=== PATIENT | male | born 1965 | race African-American/Black ===

== ENCOUNTER 2017-09-10 06:05 | Emergency (ER) | payer OTHER ==
--- NOTE | 2017-09-10 06:34 | EDM.PDOC ---
ED HPI GENERAL MEDICAL PROBLEM - General Chief Complaint: Lower Extremity Injury/Pain Stated Complaint: PAIN IN RIGHT HAMSTRING Time Seen by Provider: 09/10/17 06:27 - History of Present Illness INITIAL COMMENTS - FREE TEXT/NARRATIVE: HISTORY AND PHYSICAL: History of present illness: Patient's 52-year-old black male presents with concern of right buttock pain with radiation down his thigh posteriorly over the last several days his tried some topical ointments with no improvement he denies trauma denies numbness weakness denies lower back pain other concern Review of systems: As per history of present illness and below otherwise all systems reviewed and negative. Past medical history: As per history of present illness and as reviewed below otherwise noncontributory. Surgical history: As per history of present illness and as reviewed below otherwise noncontributory. Social history: No reported history of drug or alcohol abuse. Family history: As per history of present illness and as reviewed below otherwise noncontributory. Physical exam: HEENT: Atraumatic, normocephalic, pupils reactive, negative for conjunctival pallor or scleral icterus, mucous membranes moist, throat clear, neck supple, nontender, trachea midline. Lungs: Clear to auscultation, breath sounds equal bilaterally, chest nontender. Heart: S1S2, regular, negative for clicks, rubs, or JVD. Abdomen: Soft, nondistended, nontender. Negative for masses or hepatosplenomegaly. Negative for costovertebral tenderness. Pelvis: Stable nontender. Genitourinary: Deferred. Rectal: Deferred. Extremities: Atraumatic, negative for cords or calf pain. Neurovascular unremarkable. Patient has pain over his right sciatic notch. Neuro: Awake, alert, oriented. Cranial nerves II through XII unremarkable. Cerebellum unremarkable. Motor and sensory unremarkable throughout. Exam nonfocal. Diagnostics: None Therapeutics: None Impression: #1 sciatica Definitive disposition and diagnosis as appropriate pending reevaluation and review of above. right buttock Pain Score (Numeric/FACES): 10 - Related Data Allergies Allergy/AdvReac Type Severity Reaction Status Date / Time No Known Allergies Allergy Verified 09/10/17 06:16 Home Meds: Home Meds traMADol [Ultram] 1 cap PO Q8HR PRN 09/10/17 [History] Past Medical History - Past Health History Medical/Surgical History: Denies Medical/Surgical History - Infectious Disease History Infectious Disease History: Reports: Chicken Pox, Measles, Mumps Social & Family History - Family History Family Medical History: Noncontributory Cardiac: Reports: [place] - Tobacco Use Smoking Status *Q: Never Smoker Second Hand Smoke Exposure: Yes - Recreational Drug Use Recreational Drug Use: No Drug Use in Last 12 Months: No Review of Systems - Review of Systems Review Of Systems: ROS reveals no pertinent complaints other than HPI. ED EXAM, GENERAL - Physical Exam Exam: See Below (See dictation) Course - Vital Signs Last Recorded V/S: Last Vital Signs Temp 36.3 C 09/10/17 06:05 Pulse 66 09/10/17 06:05 Resp 18 09/10/17 06:05 BP 155/102 H 09/10/17 06:05 Pulse Ox 95 09/10/17 06:05 Departure - Departure Time of Disposition: 06:33 Disposition: Home, Self-Care 01 Condition: Good Clinical Impression: Sciatica - Discharge Information Referrals: PCP,None [Primary Care Provider] - Additional Instructions: The following information is given to patients seen in the emergency department who are being discharged to home. This information is to outline your options for follow-up care. We provide all patients seen in our emergency department with a follow-up referral. The need for follow-up, as well as the timing and circumstances, are variable depending upon the specifics of your emergency department visit. If you don't have a primary care physician on staff, we will provide you with a referral. We always advise you to contact your personal physician following an emergency department visit to inform them of the circumstance of the visit and for follow-up with them and/or the need for any referrals to a consulting specialist. The emergency department will also refer you to a specialist when appropriate. This referral assures that you have the opportunity for followup care with a specialist. All of these measure are taken in an effort to provide you with optimal care, which includes your followup. Under all circumstances we always encourage you to contact your private physician who remains a resource for coordinating your care. When calling for followup care, please make the office aware that this follow-up is from your recent emergency room visit. If for any reason you are refused follow-up, please contact the [facility] emergency department at and asked to speak to the emergency department charge nurse. [facility] [address] [place] [id number] Call to schedule appointment with primary care clinic above Medrol Dosepak Naprosyn Ultram as prescribed return as needed as discussed
[2017-09-10 06:46] VITALS: BP 142/98
== END 2017-09-10 06:41 | disposition home or self-care (01) ==
LOC: MW.ED 06:05
DX: M54.30 Sciatica, unspecified side (principal)
CPT/HCPCS: 99282

== ENCOUNTER 2017-10-29 11:49 | Day surgery (SDC) | payer OTHER ==
[2017-10-29] MEDS ORDERED: Ropivacaine 0.5% 5 MG/ML 30 ML SDV ONE (12:23)
[2017-10-29] MEDS ORDERED: Betamethasone Acetate/Betamethasone Sod Phosphate 30 MG/5 ML MDV ONE (12:23)
[2017-10-29] MEDS ORDERED: Lidocaine 2% 5 ML SDV ONE (12:23)
[2017-10-29] MEDS ORDERED: Iopamidol 408 MG/ML 50 ML SDV ONE (12:23)
--- NOTE | 2017-10-29 16:32 | OR ---
SURGEON: Shani Ott D.O. DATE OF PROCEDURE: 10/29/2017 PREOPERATIVE DIAGNOSES: 1. Lumbar degenerative disk disease. 2. Lumbar spinal stenosis. 3. Lumbar herniated disk. 4. Lumbar radiculopathy. POSTOPERATIVE DIAGNOSES: 1. Lumbar degenerative disk disease. 2. Lumbar spinal stenosis. 3. Lumbar herniated disk. 4. Lumbar radiculopathy. PROCEDURES PERFORMED: 1. Right transforaminal epidural at S1. 2. Fluoroscopic guidance for needle placement. 3. Local with oral Valium for sedation. SCREENING QUESTIONS: The patient answered "no" to all of the following questions: 1. Are you allergic to iodine, Betadine or latex? 2. Do you have a bleeding disorder? 3. Do you have any joint replacements, heart valve replacements, or a pacemaker? 4. Are you allergic to anti-inflammatories or blood thinners? 5. Do you have any current local or systemic infections? MEDICAL NECESSITY: This is a patient with a history of chronic low back pain and lower extremity radicular pain in the above dermatomal pattern that comes in for the above diagnostic and therapeutic procedure. Pertinent positives and negatives for this suspected disease process along with the diagnostic findings and testing are in the patient's history and physical exam. The most salient feature includes radicular pain in the above dermatomal pattern. The patient had failed attempts at conservative therapy including physical therapy, nonsteroidal anti- inflammatory drugs, and other medications. No contraindications to perform this procedure including medical, no bleeding disorders or infections, no psychological, no antisocial personality disorder or active addiction disorder. There are no work-related issues, and, in general, the patient does not have any history of multiple prior interventions, surgeries or nerve blocks which have failed to return the patient to function. The patient's other symptoms to be treated include numbness, paresthesia, dysesthesia or hypoesthesia referred into the left lower extremity or any weakness in the involved myotome. This procedure is being performed in accordance with national guidelines as written by the International Sp[employer]vention [employer] (ALEJANDRA). DESCRIPTION OF PROCEDURE: The patient had the procedure thoroughly explained including risks, benefits and alternatives. Consent was signed in my clinic indicating understanding and willingness to proceed. The patient presented to [facility] [place] where the patient was escorted to the dressing room to disrobe and change into a hospital gown. Preoperative vital signs were taken and stable. The patient reported that Valium was taken prior to the procedure. The patient was brought to the procedure room and placed in the prone position on the table. A pillow was placed under the abdomen in order to flatten the lumbar lordosis. The back was prepped with ChloraPrep and sterilely draped. All personnel in the operating room were dressed in appropriate attire including surgical scrubs, head and shoe covers. This was to ensure sterility while in the treatment room. During the time fluoroscopy was in use, all personnel in the operating room wore lead osorio with thyroid collars. Sterile technique was used during the procedure. The fluoroscope was placed for the S1 transforaminal epidural steroid injection. There was no sign of infection at the skin site for needle insertion. The skin was anesthetized with 2% lidocaine with a 27 gauge 1-1/2 inch needle. Then a 22 gauge 3-1/2 inch spinal needle, advanced to the right S1. Under direct fluoroscopic guidance needle position was verified in three views; AP, oblique and lateral, with 0.2 cubic centimeters increments of Isovue-200 dye. No intravascular flow pattern was observed under live fluoroscopy. Then 12 milligrams of Celestone was slowly injected after negative aspiration of heme, cerebrospinal fluid and no paresthesias were noted. The needle was cleared prior to removal from the skin. No adverse reactions were noted. The patient was brought to the recovery room awake and in good condition by my staff. The patient was monitored and discharge instructions were given after a brief stay in the recovery area. Both oral and written discharge and follow up instructions were given. The patient will follow up in the clinic in 3-4 weeks post procedure to evaluate the efficacy. The patient verbalized understanding including understanding of those signs and symptoms that would require emergency care and knows how to contact the office if there are any problems or questions in the meantime. PREOPERATIVE PAIN: 10/10. POSTOPERATIVE PAIN: 7 to 8/10. FOLLOWUP: Follow up in Pain Clinic in 3 weeks. CHERELLE / DIANA /[id number]
== END 2017-10-29 14:05 | disposition home or self-care (01) ==
LOC: MW.SDS 11:49
PROVIDERS: ATTEND Anesthesiology
DX: G89.29 Other chronic pain (principal); M21.969 Unspecified acquired deformity of unspecified lower leg; L85.1 Acquired keratosis [keratoderma] palmaris et plantaris; M25.473 Effusion, unspecified ankle; M18.9 Osteoarthritis of first carpometacarpal joint, unspecified; M20.10 Hallux valgus (acquired), unspecified foot; M75.42 Impingement syndrome of left shoulder; M21.41 Flat foot [pes planus] (acquired), right foot; M21.42 Flat foot [pes planus] (acquired), left foot; M72.2 Plantar fascial fibromatosis; M65.319 Trigger thumb, unspecified thumb; M48.061 Spinal stenosis, lumbar region without neurogenic claudication; M51.16 Intervertebral disc disorders with radiculopathy, lumbar region; M46.96 Unspecified inflammatory spondylopathy, lumbar region; Z79.899 Other long term (current) drug therapy; Z87.891 Personal history of nicotine dependence
CPT/HCPCS: 62323; J0702; J2795; Q9966

== ENCOUNTER 2018-01-07 12:03 | Day surgery (SDC) | payer OTHER ==
[~2018-01-07 12:03] MED LIST: Betamethasone Acetate/Betamethasone Sod Phosphate 30 MG/5 ML MDV ONE; Iopamidol 408 MG/ML 50 ML SDV ONE; Lidocaine 2% 5 ML SDV ONE; Ropivacaine 0.5% 5 MG/ML 30 ML SDV ONE
--- NOTE | 2018-01-07 14:45 | OR ---
SURGEON: Shani Ott D.O. DATE OF PROCEDURE: 01/07/2018 OR STAFF PRESENT: 1. Alka Slater RN. 2. Mamta Heller RN. 3. Alka Merida RN. 4. Jazmin Echevarria, RT. WOUND CLASSIFICATION: I. PREOPERATIVE DIAGNOSES: 1. Lumbar degenerative disk disease. 2. Lumbar radiculopathy. POSTOPERATIVE DIAGNOSES: 1. Lumbar degenerative disk disease. 2. Lumbar radiculopathy. PROCEDURES PERFORMED: 1. Right transforaminal epidural steroid injection at S1. 2. Fluoroscopic guidance for needle placement. 3. Local with oral Valium for sedation. SCREENING QUESTIONS: The patient answered "no" to all of the following questions: 1. Are you allergic to iodine, Betadine or latex? 2. Do you have a bleeding disorder? 3. Do you have any joint replacements, heart valve replacements, or a pacemaker? 4. Are you allergic to anti-inflammatories or blood thinners? 5. Do you have any current local or systemic infections? MEDICAL NECESSITY: This is a patient with a history of chronic low back pain and lower extremity radicular pain in the above dermatomal pattern that comes in for the above diagnostic and therapeutic procedure. Pertinent positives and negatives for this suspected disease process along with the diagnostic findings and testing are in the patient's history and physical exam. The most salient feature includes radicular pain in the above dermatomal pattern. The patient had failed attempts at conservative therapy including physical therapy, nonsteroidal anti- inflammatory drugs, and other medications. No contraindications to perform this procedure including medical, no bleeding disorders or infections, no psychological, no antisocial personality disorder or active addiction disorder. There are no work-related issues, and, in general, the patient does not have any history of multiple prior interventions, surgeries or nerve blocks which have failed to return the patient to function. The patient's other symptoms to be treated include numbness, paresthesia, dysesthesia or hypoesthesia referred into the left lower extremity or any weakness in the involved myotome. This procedure is being performed in accordance with national guidelines as written by the International Sp[employer] Intervention Society (ALEJANDRA). DESCRIPTION OF PROCEDURE: The patient had the procedure thoroughly explained including risks, benefits and alternatives. Consent was signed in my clinic indicating understanding and willingness to proceed. The patient presented to [facility] [place] where the patient was escorted to the dressing room to disrobe and change into a hospital gown. Preoperative vital signs were taken and stable. The patient reported that Valium was taken prior to the procedure. The patient was brought to the procedure room and placed in the prone position on the table. A pillow was placed under the abdomen in order to flatten the lumbar lordosis. The back was prepped with ChloraPrep and sterilely draped. All personnel in the operating room were dressed in appropriate attire including surgical scrubs, head and shoe covers. This was to ensure sterility while in the treatment room. During the time fluoroscopy was in use, all personnel in the operating room wore lead osorio with thyroid collars. Sterile technique was used during the procedure. The fluoroscope was placed for the right S1 transforaminal epidural steroid injection. There was no sign of infection at the skin site for needle insertion. The skin was anesthetized with 2% lidocaine with a 27 gauge 1-1/2 inch needle. Then, a 22 gauge 3-1/2 inch spinal needle, advanced to the right S1. Under direct fluoroscopic guidance needle position was verified in three views; AP, oblique and lateral, with 0.2 cubic centimeters increments of Isovue- 200 dye. No intravascular flow pattern was observed under live fluoroscopy. Then 12 milligrams of Celestone was slowly injected after negative aspiration of heme, cerebrospinal fluid and no paresthesias were noted. The needle was cleared prior to removal from the skin. No adverse reactions were noted. The patient was brought to the recovery room awake and in good condition by my staff. The patient was monitored and discharge instructions were given after a brief stay in the recovery area. Both oral and written discharge and follow up instructions were given. The patient will follow up in the clinic in 3-4 weeks post procedure to evaluate the efficacy. The patient verbalized understanding including understanding of those signs and symptoms that would require emergency care and knows how to contact the office if there are any problems or questions in the meantime. PREOPERATIVE PAIN: 06/02. POSTOPERATIVE PAIN: 03/02. FOLLOWUP: Follow up in the Pain Clinic in one month. CHERELLE / DIANA /[id number]
== END 2018-01-07 13:55 | disposition home or self-care (01) ==
LOC: MW.SDS 12:03
PROVIDERS: ATTEND Anesthesiology
DX: G89.29 Other chronic pain (principal); M51.16 Intervertebral disc disorders with radiculopathy, lumbar region; M18.9 Osteoarthritis of first carpometacarpal joint, unspecified; M48.061 Spinal stenosis, lumbar region without neurogenic claudication; Z79.899 Other long term (current) drug therapy; Z87.891 Personal history of nicotine dependence
CPT/HCPCS: J0702; J2795; Q9966

== ENCOUNTER → 2018-01-28 | Day surgery (SDC) | payer OTHER ==
--- NOTE | 2018-01-28 15:22 | OR ---
SURGEON: Shani Ott D.O. DATE OF PROCEDURE: 01/28/2018 OR STAFF PRESENT: 1. Alka Slater RN. 2. Erika Rodriguez RN. WOUND CLASSIFICATION: I. PREOPERATIVE DIAGNOSES: 1. Lumbar degenerative disk disease, L4-L5 and L5-S1. 2. Broad based disk protrusions. 3. Facet hypertrophy. 4. Neuroforaminal stenosis. 5. Lumbosacral radiculopathy. POSTOPERATIVE DIAGNOSES: 1. Lumbar degenerative disk disease, L4-L5 and L5-S1. 2. Broad based disk protrusions. 3. Facet hypertrophy. 4. Neuroforaminal stenosis. 5. Lumbosacral radiculopathy. PROCEDURES PERFORMED: 1. Caudal epidural steroid injection. 2. Fluoroscopic guidance for needle placement. 3. Local with oral Valium for sedation. SCREENING QUESTIONS: The patient answered "no" to all of the following questions: 1. Are you allergic to latex? 2. Do you have a bleeding disorder? 3. Do you have any current local or systemic infections? 4. Are you taking any anti-inflammatories or blood thinners? 5. Do you have any joint replacements, heart valve replacements, or a pacemaker? DESCRIPTION OF PROCEDURE: The patient had the procedure thoroughly explained including all possible risks, benefits and alternatives. Consent was signed in my clinic indicating understanding and willingness to proceed. The patient presented to [facility] and was escorted to the dressing room to disrobe and change into a hospital gown. Preoperative vital signs were taken and stable. The patient reported that Valium was taken prior to the procedure. The patient was brought back to the procedure room and placed in the prone position on the procedure room table. A pillow was placed under the hips in order to flatten the lumbar lordosis. The back was prepped with ChloraPrep and sterilely draped. All personnel in the operating room were dressed in appropriate attire including surgical scrubs, head and shoe covers. This was to ensure sterility while in the treatment room. During the time fluoroscopy was in use, all personnel in the operating room wore lead osorio with thyroid collars. Sterile technique was used throughout the procedure. The patient was awake and conversant throughout the procedure. There was no evidence of infection at the site of needle insertion. Skeletal landmarks were identified under fluoroscopy for the lumbar epidural. Skin was anesthetized with 2% lidocaine with a sterile 27-gauge 1.5 inch needle. Then, a 20-gauge Tuohy epidural needle was placed in the epidural space with loss of resistance technique under fluoroscopic guidance. No heme, cerebrospinal fluid, or paresthesias were noted. Isovue-200 contrast dye was injected in 0.2 cubic centimeter increments and seen to outline the epidural space in both AP and lateral views. There was no intravascular flow pattern observed under live fluoroscopy. Then, 12 milligrams of Celestone was slowly injected after negative aspiration. The patient tolerated the procedure well. Vital signs were stable during and after the procedure. The staff escorted the patient to the recovery area and the patient was released in stable condition after a brief stay in the recovery room monitored by the nurse. The patient was given both oral and written discharge and follow up instructions with recommendation to follow up given for 2-3 weeks. The patient voiced understanding including understanding of those signs and symptoms that would require emergency care. The patient knows how to contact the office if there are any additional problems or questions in the meantime. PREOPERATIVE PAIN: 10/10. POSTOPERATIVE PAIN: 4/10. PLAN: Follow up in the Pain Clinic in 3 weeks. CHERELLE / DIANA /[id number]
== END ==
LOC: MW.SDS 12:14
PROVIDERS: ATTEND Anesthesiology
DX: M51.36 Other intervertebral disc degeneration, lumbar region (principal); M51.17 Intervertebral disc disorders with radiculopathy, lumbosacral region; M18.9 Osteoarthritis of first carpometacarpal joint, unspecified; M48.061 Spinal stenosis, lumbar region without neurogenic claudication; M46.96 Unspecified inflammatory spondylopathy, lumbar region; Z79.899 Other long term (current) drug therapy; Z79.84 Long term (current) use of oral hypoglycemic drugs; Z87.891 Personal history of nicotine dependence
CPT/HCPCS: 62323; J0702; J2795; Q9966

== ENCOUNTER 2019-05-25 10:51 | Observation (INO) | payer OTHER ==
[2019-05-25] MEDS ORDERED: Sodium Chloride 0.9% 2.5 ML Syringe FLUSH PRN (10:59)
[2019-05-25] MEDS ORDERED: Sodium Chloride 0.9% 10 ML Syringe FLUSH PRN (10:59)
--- NOTE | 2019-05-25 11:26 | EDM.PDOC ---
ED HPI GENERAL MEDICAL PROBLEM - General Chief Complaint: Chest Pain Stated Complaint: CHETS PAIN Time Seen by Provider: 05/25/19 10:59 Source of Information: Reports: Patient History Limitations: Reports: No Limitations - History of Present Illness INITIAL COMMENTS - FREE TEXT/NARRATIVE: History of present illness: []Patient has a history of diabetes and started having chest pain at 9:00 last night. It was sharp in his left chest nonradiating. Patient didn't sleep last night although he did not sleep well and woke up at 6 AM with the same pain. Pain is worsened with breathing and states that he has had a cough recently without and as of breath, fevers or chills. He was seen at the [facility] this morning and a workup was begun he was given one dose of aspirin and nitroglycerin alleviated his pain completely. He was then told to come to the ER for further evaluation. He presented without any recurring chest pain. Review of systems: As per history of present illness and below otherwise all systems reviewed and negative. Past medical history: As per history of present illness and as reviewed below otherwise noncontributory. Surgical history: As per history of present illness and as reviewed below otherwise noncontributory. Social history: No reported history of drug or alcohol abuse. Family history: As per history of present illness and as reviewed below otherwise noncontributory. Physical exam: General: Well developed, well nourished in NAD HEENT: Atraumatic, normocephalic, pupils reactive, negative for conjunctival pallor or scleral icterus, mucous membranes moist, throat clear, neck supple, nontender, trachea midline. Lungs: Clear to auscultation, breath sounds equal bilaterally, chest nontender. Heart: S1S2, regular, negative for clicks, rubs, or JVD. Abdomen: NABS, Soft, nondistended, nontender. Negative for masses or hepatosplenomegaly. Negative for costovertebral tenderness. Pelvis: Stable nontender. Genitourinary: Deferred. Rectal: Deferred. Extremities: Atraumatic, negative for cords or calf pain. Neurovascular unremarkable. Neuro: Awake, alert, oriented. Cranial nerves II through XII unremarkable. Cerebellum unremarkable. Motor and sensory unremarkable throughout. Exam nonfocal. Skin:warm and dry Diagnostics: EKG, chest x-ray, CBC, chemistry, troponin-Negative Therapeutics: Observation ED Course: Stable, admit to hospitalist for rule out Impression: Chest pain Prescriptions: none Plan: Admit Definitive disposition and diagnosis as appropriate pending reevaluation and review of above. - Related Data Allergies Allergy/AdvReac Type Severity Reaction Status Date / Time No Known Allergies Allergy Verified 05/25/19 10:58 Home Meds: Home Meds metFORMIN [Glucophage XR] 0 mg PO DAILY 07/05/18 [History] Fish Oil/[place]-3 Fatty Acids [Fish Oil 1,000 MG] 1 each PO ASDIRECTED 05/25/19 [ History] Past Medical History - Past Health History Medical/Surgical History: Denies Medical/Surgical History HEENT History: Reports: Impaired Vision, Other (See Below) Other HEENT History: wears glasses Musculoskeletal History: Reports: Back Pain, Chronic Endocrine/Metabolic History: Reports: Diabetes, Type II - Infectious Disease History Infectious Disease History: Reports: Chicken Pox, Measles, Mumps - Past Surgical History Musculoskeletal Surgical History: Reports: Other (See Below) Other Musculoskeletal Surgeries/Procedures:: achilles tendon repair;back sx Social & Family History - Family History Family Medical History: Noncontributory Cardiac: Reports: ID - Tobacco Use Smoking Status *Q: Never Smoker Second Hand Smoke Exposure: No - Caffeine Use Caffeine Use: Reports: None - Recreational Drug Use Recreational Drug Use: No ED ROS GENERAL - Review of Systems Review Of Systems: See Below ED EXAM, GENERAL - Physical Exam Exam: See Below Course - Vital Signs Last Recorded V/S: Last Vital Signs Temp 97.7 F 05/25/19 12:53 Pulse 60 05/25/19 12:53 Resp 18 05/25/19 12:53 BP 147/88 H 05/25/19 12:53 Pulse Ox 99 05/25/19 12:53 - Orders/Labs/Meds Orders: Active Orders 24 hr Category Date Time Status Patient Status [ADT] Stat ADT 05/25/19 13:39 Active Cardiac Monitoring [RC] . DIRECTED Care 05/25/19 11:00 Active EKG Documentation Completion [RC] STAT Care 05/25/19 11:00 Active Sodium Chloride 0.9% [Saline Flush] Med 05/25/19 10:59 Active 10 ml FLUSH ASDIRECTED PRN Sodium Chloride 0.9% [Saline Flush] Med 05/25/19 10:59 Active 2.5 ml FLUSH ASDIRECTED PRN Saline Lock Insert [OM.PC] Stat Oth 05/25/19 10:59 Ordered Medication Orders Sodium Chloride (Saline Flush) 10 ml FLUSH ASDIRECTED PRN PRN Reason: Keep Vein Open Sodium Chloride (Saline Flush) 2.5 ml FLUSH ASDIRECTED PRN PRN Reason: Keep Vein Open Labs: Laboratory Tests 05/25/19 05/25/19 Range/Units 11:11 11:11 WBC 6.00 (4.0-11.0) K/uL RBC 5.39 (4.50-5.90) M/uL Hgb 15.1 (13.0-17.0) g/dL Hct 44.9 (38.0-50.0) % MCV 83.3 (80.0-98.0) fL MCH 28.0 (27.0-32.0) pg MCHC 33.6 (31.0-37.0) g/dL RDW Std Deviation 45.6 (28.0-62.0) fl RDW Coeff of Iesha 15 (11.0-15.0) % Plt Count 36 L (150-400) K/uL MPV (7.40-12.00) fL Neut % (Auto) 48.2 (48.0-80.0) % Lymph % (Auto) 38.7 (16.0-40.0) % [place] % (Auto) 10.3 (0.0-15.0) % Eos % (Auto) 2.5 (0.0-7.0) % Baso % (Auto) 0.3 (0.0-1.5) % Neut # (Auto) 2.9 (1.4-5.7) K/uL Lymph # (Auto) 2.3 (0.6-2.4) K/uL [place] # (Auto) 0.6 (0.0-0.8) K/uL Eos # (Auto) 0.2 (0.0-0.7) K/uL Baso # (Auto) 0.0 (0.0-0.1) K/uL Nucleated RBC % 0.0 /100WBC Nucleated RBCs # 0 K/uL Sodium 140 (136-148) mmol/L Potassium 4.5 (3.5-5.1) mmol/L Chloride 105 (98-107) mmol/L Carbon Dioxide 21.2 (21.0-32.0) mmol/L BUN 14 (7.0-18.0) mg/dL Creatinine 0.9 (0.8-1.3) mg/dL Est Cr Clr Drug Dosing 86.71 mL/min Estimated GFR (MDRD) > 60.0 ml/min Glucose 114 H (74-106) mg/dL Calcium 9.0 (8.5-10.1) mg/dL Total Bilirubin 0.5 (0.2-1.0) mg/dL AST 20 (15-37) IU/L ALT 33 (14-63) IU/L Alkaline Phosphatase 61 (46-116) U/L Troponin I < 0.050 (0.000-0.056) ng/mL Total Protein 7.5 (6.4-8.2) g/dL Albumin 3.5 (3.4-5.0) g/dL Globulin 4.0 (2.6-4.0) g/dL Albumin/Globulin Ratio 0.9 (0.9-1.6) Meds: Medications Generic Name Dose Route Start Last Admin Trade Name Freq PRN Reason Stop Dose Admin Sodium Chloride 10 ml 05/25/19 10:59 Saline Flush FLUSH ASDIRECTED PRN Keep Vein Open Sodium Chloride 2.5 ml 05/25/19 10:59 Saline Flush FLUSH ASDIRECTED PRN Keep Vein Open Departure - Departure Time of Disposition: 13:44 Disposition: Refer to Observation Condition: Good Clinical Impression: Chest pain Qualifiers: Chest pain type: unspecified Qualified Code(s): R07.9 - Chest pain, unspecified Referrals: [facility] [Primary Care Provider] - Forms: ED Department Discharge - My Orders Last 24 Hours: My Active Orders 05/25/19 10:59 Sodium Chloride 0.9% [Saline Flush] 10 ml FLUSH ASDIRECTED PRN Sodium Chloride 0.9% [Saline Flush] 2.5 ml FLUSH ASDIRECTED PRN Saline Lock Insert [OM.PC] Stat 05/25/19 11:00 Cardiac Monitoring [RC] . DIRECTED EKG Documentation Completion [RC] STAT 05/25/19 13:39 Patient Status [ADT] Stat - Assessment/Plan Last 24 Hours: My Active Orders 05/25/19 10:59 Sodium Chloride 0.9% [Saline Flush] 10 ml FLUSH ASDIRECTED PRN Sodium Chloride 0.9% [Saline Flush] 2.5 ml FLUSH ASDIRECTED PRN Saline Lock Insert [OM.PC] Stat 05/25/19 11:00 Cardiac Monitoring [RC] . DIRECTED EKG Documentation Completion [RC] STAT 05/25/19 13:39 Patient Status [ADT] Stat
--- NOTE | 2019-05-25 12:17 | CR ---
INDICATION: Pain, shortness of breath. TECHNIQUE: Chest 1 view COMPARISON: Chest radiograph 03/20/2016. FINDINGS: There is a relatively stable opacity in the medial right upper lung which may represent superimposition of degenerative changes of the right sternoclavicular joint and right 1st costochondral junction, however a pulmonary mass is not excluded. No other focal consolidation. No pleural effusion or pneumothorax. Normal heart size and pulmonary vascularity. IMPRESSION: Indeterminate but relatively stable opacity in the medial right upper lung which likely represents superimposed osseous degenerative changes, however an underlying pulmonary mass is not entirely excluded. Recommend CT of the chest for further evaluation. Dictated by Tejal Zavala MD @ May 25 2019 12:12PM Signed by Dr. Tejal Zavala @ May 25 2019 12:15PM
[2019-05-25 13:17] LABS: BLOOD UREA NITROGEN,BUN 14 mg/dL (7.0-18.0); CARBON DIOXIDE,CO2 21.2 mmol/L (21.0-32.0); CHLORIDE,CL 105 mmol/L (98-107); GLUCOSE RANDOM 114 mg/dL (74-106); POTASSIUM,K 4.5 mmol/L (3.5-5.1); SODIUM,NA 140 mmol/L (136-148)
[2019-05-25] MEDS ORDERED: Acetaminophen 325 MG Tab PO PRN (14:12)
[2019-05-25] MEDS ORDERED: Ondansetron 4 MG/2 ML SDV IVPUSH PRN (14:12)
--- NOTE | 2019-05-25 14:39 | PCM.HP.2 ---
H&P History of Present Illness - General Date of Service: 05/25/19 Admit Problem/Dx: Admission Diagnosis/Problem Admission Diagnosis/Problem Chest pain Source of Information: Patient History Limitations: Reports: No Limitations - History of Present Illness Initial Comments - Free Text/Narative: This 54 year old male with pmh of DM type 2, obesity and acquired thrombocytopenia presented to the ED with concerns of L lateral chest pain. He initially arrived to [facility] today with these concerns, BP was noted to be mildly elevated, he was given ASA and nitro with resolution of chest pain. He was referred to the ED for further evaluation. He reports this chest pain started last evening around 9 pm, him and his ate [employer] for supper then sharp L lateral chest pain started. he reports it was constant in nature, sharp. Radiated to his L arm, mild SOB noted with this as well. No diaphoresis or nausea. Reports he didn't sleep well due to the pain. He reports feeling well overall prior to this event. No history of fevers, chills, palpitations or shortness of breath. No abdominal pain, no black or bloody stools, no urinary concerns, no blood in urine. He reports family history of CAD, his mother had [place] and passed aware from CHF at the age of 70. In the ED CBC other than platelets, 36,000, WNL. BMP WNL. Troponin negative. 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 VS good, slightly elevated BP 140/80s. EKG SR with no ischemic changes noted. PCP, [place]. Reports he has been worked up for thrombocytopenia, unsure of cause. He was evaluated by Dr Christian, senior accountant analyst and is monitored. Platelets run around 39, 000 typically. - Related Data Allergies/Adverse Reactions: Allergies Allergy/AdvReac Type Severity Reaction Status Date / Time No Known Allergies Allergy Verified 05/25/19 14:39 Home Medications: Home Meds metFORMIN [Glucophage XR] 0 mg PO DAILY 07/05/18 [History] Fish Oil/[place]-3 Fatty Acids [Fish Oil 1,000 MG] 1 each PO ASDIRECTED 05/25/19 [ History] Past Medical History - Past Health History Medical/Surgical History: Denies Medical/Surgical History HEENT History: Reports: Impaired Vision, Other (See Below) Other HEENT History: wears glasses Cardiovascular History: Denies: Afib, Blood Clots/VTE/DVT, CAD, Heart Murmur, Hypertension Respiratory History: Reports: None. Denies: Asthma, COPD Gastrointestinal History: Reports: None. Denies: GERD, GI Bleed Genitourinary History: Reports: None. Denies: Chronic Renal Insuffiency Musculoskeletal History: Reports: Back Pain, Chronic Endocrine/Metabolic History: Reports: Diabetes, Type II, Obesity/BMI 30+ Hematologic History: Reports: Idiopathic Thrombocytopenia - Infectious Disease History Infectious Disease History: Reports: Chicken Pox, Measles, Mumps - Past Surgical History Musculoskeletal Surgical History: Reports: Other (See Below) Other Musculoskeletal Surgeries/Procedures:: achilles tendon repair;back sx Social & Family History - Family History Family Medical History: Noncontributory Cardiac: Reports: [place] - Tobacco Use Smoking Status *Q: Never Smoker Second Hand Smoke Exposure: No - Caffeine Use Caffeine Use: Reports: None - Alcohol Use Alcohol Use Frequency: Socially - Recreational Drug Use Recreational Drug Use: No - Living Situation & Occupation Living situation: Reports: Occupation: Employed H&P Review of Systems - Review of Systems: Review Of Systems: See Below General: Denies: Fever, Chills, Malaise HEENT: Reports: No Symptoms. Denies: Headaches, Sinus Congestion Pulmonary: Reports: No Symptoms. Denies: Shortness of Breath Cardiovascular: Reports: No Symptoms. Denies: Chest Pain, Lightheadedness Gastrointestinal: Reports: No Symptoms. Denies: Abdominal Pain, Black Stool, Bloody Stool, Nausea, Vomiting Genitourinary: Reports: No Symptoms. Denies: Dysuria, Frequency, Burning Musculoskeletal: Reports: No Symptoms Skin: Reports: No Symptoms. Denies: Rash Neurological: Reports: No Symptoms Hematologic/Lymphatic: Reports: No Symptoms Immunologic: Reports: No Symptoms Exam - Exam Exam: See Below - Vital Signs Vital Signs: Last Vital Signs Temp 97.7 F 05/25/19 12:53 Pulse 54 L 05/25/19 13:47 Resp 18 05/25/19 13:47 BP 136/90 05/25/19 13:47 Pulse Ox 98 05/25/19 13:47 Weight: 95.254 kg - Exam General: Alert, Oriented, Cooperative HEENT: Conjunctiva Clear, Mucosa Moist & [place], Posterior Pharynx Clear Neck: Supple Lungs: Clear to Auscultation, Normal Respiratory Effort, Other (mild chest tenderness to L lateral chest, just below axilla. reproduces pain slightly) Cardiovascular: Regular Rate GI/Abdominal Exam: Normal Bowel Sounds, Soft, Non-Tender Extremities: Normal Inspection, Normal Range of Motion, Non-Tender, No Pedal Edema Skin: Warm, Dry, Intact. No: [place] Neuro Extensive - Mental Status: Alert, Oriented x3 Psychiatric: Alert, Normal Affect, Normal Mood - Patient Data Lab Results Last 24 hrs: Laboratory Results - last 24 hr 05/25/19 05/25/19 Range/Units 11:11 11:11 WBC 6.00 (4.0-11.0) K/uL RBC 5.39 (4.50-5.90) M/uL Hgb 15.1 (13.0-17.0) g/dL Hct 44.9 (38.0-50.0) % MCV 83.3 (80.0-98.0) fL MCH 28.0 (27.0-32.0) pg MCHC 33.6 (31.0-37.0) g/dL RDW Std Deviation 45.6 (28.0-62.0) fl RDW Coeff of Iesha 15 (11.0-15.0) % Plt Count 36 L (150-400) K/uL MPV (7.40-12.00) fL Neut % (Auto) 48.2 (48.0-80.0) % Lymph % (Auto) 38.7 (16.0-40.0) % [place] % (Auto) 10.3 (0.0-15.0) % Eos % (Auto) 2.5 (0.0-7.0) % Baso % (Auto) 0.3 (0.0-1.5) % Neut # (Auto) 2.9 (1.4-5.7) K/uL Lymph # (Auto) 2.3 (0.6-2.4) K/uL [place] # (Auto) 0.6 (0.0-0.8) K/uL Eos # (Auto) 0.2 (0.0-0.7) K/uL Baso # (Auto) 0.0 (0.0-0.1) K/uL Nucleated RBC % 0.0 /100WBC Nucleated RBCs # 0 K/uL Sodium 140 (136-148) mmol/L Potassium 4.5 (3.5-5.1) mmol/L Chloride 105 (98-107) mmol/L Carbon Dioxide 21.2 (21.0-32.0) mmol/L BUN 14 (7.0-18.0) mg/dL Creatinine 0.9 (0.8-1.3) mg/dL Est Cr Clr Drug Dosing 86.71 mL/min Estimated GFR (MDRD) > 60.0 ml/min Glucose 114 H (74-106) mg/dL Calcium 9.0 (8.5-10.1) mg/dL Total Bilirubin 0.5 (0.2-1.0) mg/dL AST 20 (15-37) IU/L ALT 33 (14-63) IU/L Alkaline Phosphatase 61 (46-116) U/L Troponin I < 0.050 (0.000-0.056) ng/mL Total Protein 7.5 (6.4-8.2) g/dL Albumin 3.5 (3.4-5.0) g/dL Globulin 4.0 (2.6-4.0) g/dL Albumin/Globulin Ratio 0.9 (0.9-1.6) Result Diagrams: 05/25/19 11:11 05/25/19 11:11 EKG INTERPRETATION EKG Date: 05/25/19 Rhythm: NSR P-Wave: Present QRS: Normal ST-T: Normal QT: Normal *Q Meaningful Use (ADM) - VTE *Q VTE Pharmacological Contraindications *Q: Thrombocytopenia - Problem List (1) Chest pain SNOMED Code(s): 84063005 ICD Code: R07.9 - CHEST PAIN, UNSPECIFIED Status: Acute Current Visit: Yes Qualifiers: Chest pain type: unspecified Qualified Code(s): R07.9 - Chest pain, unspecified (2) DM type 2 (diabetes mellitus, type 2) SNOMED Code(s): 01546133 ICD Code: E11.9 - TYPE 2 DIABETES MELLITUS WITHOUT COMPLICATIONS Status: Acute Current Visit: Yes Qualifiers: Diabetes mellitus extermination supervisor insulin use: without usp use Diabetes mellitus complication status: without complication Qualified Code(s): E11.9 - Type 2 diabetes mellitus without complications (3) Thrombocytopenia SNOMED Code(s): 848409847 ICD Code: D69.6 - THROMBOCYTOPENIA, UNSPECIFIED Status: Chronic Current Visit: Yes (4) History of lumbar fusion SNOMED Code(s): 18955060259423 ICD Code: Z98.1 - ARTHRODESIS STATUS Status: Chronic Current Visit: No Problem List Initiated/Reviewed/Updated: Yes Orders Last 24hrs: Active Orders 24 hr Category Date Time Status Patient Status [ADT] Stat ADT 05/25/19 13:39 Active Blood Glucose Check, Bedside [RC] TIDAC Care 05/25/19 14:33 Ordered Cardiac Monitoring [RC] . DIRECTED Care 05/25/19 11:00 Active Intake and Output [RC] QSHIFT Care 05/25/19 14:12 Active Oxygen Therapy [RC] PRN Care 05/25/19 14:12 Active Telemetry Monitoring [Cardiac Monitoring] [RC] . Care 05/25/19 14:05 Active DIRECTED Up ad Tracie [RC] ASDIRECTED Care 05/25/19 14:12 Active VTE/DVT Education [RC] PER UNIT ROUTINE Care 05/25/19 14:12 Active Vital Signs [RC] Q4H Care 05/25/19 14:12 Active Heart Healthy Diet [DIET] Diet 05/25/19 Lunch Active GLYCOSYLATED HEMOGLOBIN,HGBA1C [CHEM] Routine Lab 05/25/19 14:33 Ordered LIPID PANEL [CHEM] AM Lab 05/26/19 05:11 Ordered PERIPH BLOOD SMEAR PATHOLOGIST [HEME] Routine Lab 05/25/19 11:11 Stop Req TROPONIN I [CHEM] Q6H Lab 05/25/19 17:00 Ordered TROPONIN I [CHEM] Q6H Lab 05/25/19 23:00 Ordered Acetaminophen [Tylenol] Med 05/25/19 14:12 Ordered 650 mg PO Q4H PRN Fish Oil/[place]-3 Fatty Acids [Fish Oil] Med 05/25/19 14:45 Ordered 1 gm PO ASDIRECTED Insulin Aspart [NovoLOG] Med 05/25/19 17:00 Ordered See Protocol SUBCUT TIDAC Ondansetron [Zofran] Med 05/25/19 14:12 Ordered 4 mg IVPUSH Q4H PRN Sodium Chloride 0.9% [Saline Flush] Med 05/25/19 10:59 Active 10 ml FLUSH ASDIRECTED PRN Sodium Chloride 0.9% [Saline Flush] Med 05/25/19 10:59 Active 2.5 ml FLUSH ASDIRECTED PRN Saline Lock Insert [OM.PC] Stat Oth 05/25/19 10:59 Ordered Resuscitation Status Routine Resus Stat 05/25/19 14:12 Ordered Medication Orders Acetaminophen (Tylenol) 650 mg PO Q4H PRN PRN Reason: Pain (mild 1-3) Fish Oil (Fish Oil) 1 gm PO ASDIRECTED MARTINA Ondansetron HCl (Zofran) 4 mg IVPUSH Q4H PRN PRN Reason: Nausea Sodium Chloride (Saline Flush) 10 ml FLUSH ASDIRECTED PRN PRN Reason: Keep Vein Open Sodium Chloride (Saline Flush) 2.5 ml FLUSH ASDIRECTED PRN PRN Reason: Keep Vein Open Assessment/Plan Comment:: This 54 year old male admitted with chest pain, rule out [place] 1. Chest pain: Trend troponins, and monitor on telemetry due to risk factors for CAD. Monitor BP, may benefit from HCTZ if continues to be 140/80. Obtain lipid and A1c. Arrange for outpatient stress test. 2. DM Type 2: Hold metformin, Novolog SSI, monitor BS with meals. 3. Thrombocytopenia: Stable, no signs of bleeding. Monitor. VTE prophylaxis: ambulation, no pharmacologic treatment due to thrombocytopenia Dispo: 1 day - Mortality Measure Prognosis:: Good
[2019-05-25] MEDS ORDERED: Pantoprazole 40 MG in Sodium Chloride 0.9% 10 ML IV ONE (14:42)
[2019-05-25] MEDS ORDERED: Fish Oil/Omega-3 Fatty Acids 1 Gm Cap PO SCH (14:45)
[2019-05-25] MEDS: Insulin Aspart 100 Units/ML 3 ML Pen SUBCUT SCH (16:12)
[2019-05-25 17:38] LABS: HEMOGLOBIN A1C 5.9 % (4.5-6.2)
[2019-05-26 00:39] VITALS: PULSE 65
[2019-05-26] MEDS: Insulin Aspart 100 Units/ML 3 ML Pen SUBCUT SCH (07:28)
[2019-05-26 07:52] VITALS: BP 159/99
[2019-05-26] MEDS ORDERED: Fish Oil/Omega-3 Fatty Acids 1 Gm Cap PO SCH (09:00)
--- NOTE | 2019-05-26 09:34 | PCM.DCSUM1 ---
Discharge Summary - Hospital Course Brief History: This 54 year old male with pmh of DM type 2, obesity and acquired thrombocytopenia presented to the ED with concerns of L lateral chest pain. He initially arrived to [facility] today with these concerns, BP was noted to be mildly elevated, he was given ASA and nitro with resolution of chest pain. He was referred to the ED for further evaluation. He reports this chest pain started last evening around 9 pm, him and his ate [employer] for supper then sharp L lateral chest pain started. he reports it was constant in nature, sharp. Radiated to his L arm, mild SOB noted with this as well. No diaphoresis or nausea. Reports he didn't sleep well due to the pain. He reports feeling well overall prior to this event. No history of fevers, chills, palpitations or shortness of breath. No abdominal pain, no black or bloody stools, no urinary concerns, no blood in urine. He reports family history of CAD, his mother had IA and passed aware from CHF at the age of 70. In the ED CBC other than platelets, 36,000, WNL. BMP WNL. Troponin negative. 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 VS good, slightly elevated BP 140/80s. EKG SR with no ischemic changes noted. PCP, [place]. Reports he has been worked up for thrombocytopenia, unsure of cause. 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 Platelets run around 39,000 typically. Diagnosis: Stroke: No - Discharge Data Discharge Date: 05/26/19 Discharge Disposition: Home, Self-Care 01 Condition: Good - Referral to Home Health Primary Care Physician: [facility] [place] [place] - Discharge Diagnosis/Problem(s) (1) Chest pain SNOMED Code(s): 77506656 ICD Code: R07.9 - CHEST PAIN, UNSPECIFIED Status: Acute Current Visit: Yes Qualifiers: Chest pain type: unspecified Qualified Code(s): R07.9 - Chest pain, unspecified (2) DM type 2 (diabetes mellitus, type 2) SNOMED Code(s): 71214003 ICD Code: E11.9 - TYPE 2 DIABETES MELLITUS WITHOUT COMPLICATIONS Status: Acute Current Visit: Yes 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 care home use Diabetes mellitus complication status: without complication Qualified Code(s): E11.9 - Type 2 diabetes mellitus without complications (3) Thrombocytopenia SNOMED Code(s): 775721770 ICD Code: D69.6 - THROMBOCYTOPENIA, UNSPECIFIED Status: Chronic Current Visit: Yes (4) History of lumbar fusion SNOMED Code(s): 51968534289919 ICD Code: Z98.1 - ARTHRODESIS STATUS Status: Chronic Current Visit: No - Patient Instructions Diet: Heart Healthy Diet, Diabetic Diet Activity: As Tolerated, No Strenuous Activities Showering/Bathing: May Shower Notify Provider of: Fever, Increased Pain, Swelling and Redness, Drainage, Nausea and/or Vomiting - Discharge Plan *PRESCRIPTION DRUG MONITORING PROGRAM REVIEWED*: Not Applicable *COPY OF PRESCRIPTION DRUG MONITORING REPORT IN PATIENT DALY: Not Applicable Prescriptions/Med Rec: Aspirin 81 mg PO DAILY #30 tab.chew Home Medications: Home Meds metFORMIN [Glucophage XR] 500 mg PO TIDMEALS 07/05/18 [History] Fish Oil/[place]-3 Fatty Acids [Fish Oil 1,000 MG] 1 each PO DAILY 05/25/19 [ History] Aspirin 81 mg PO DAILY #30 tab.chew 05/26/19 [Rx] Oxygen Therapy Mode: Room Air Patient Handouts: Nonspecific Chest Pain, [id number], Aspirin and Your Heart , Aspirin, ASA oral tablets Referrals: [facility] [Outside] - Discharge Summary/Plan Comment DC Time >30 min.: No Discharge Summary/Plan Comment: Admitting Diagnoses: Atypical chest pain Discharge Diagnoses: Atypical chest pain-resolved Other PMH: DM Type 2 Obesity Josesito was admitted secondary to atypical chest pain rule out ACS. He was pain free upon arrival. he was monitored on telemetry, trended troponins were negative. and No changes to EKG. He has remained pain free. Suspected possible GERD due to heavy fat food he ate prior to pain starting. Though, due to risk factors, will encourage [facility] to complete stress test. BP stable. DM well controlled on Metformin. Cholesterol good as well. He will be discharged home today. He was counseled on DASH diet for weight loss and to help with mild hypertension, if this does not work he may bee thiazide diuretic. He was encouraged to return to ED or clinic if concerns should arise. - General Info Date of Service: 05/26/19 Admission Dx/Problem (Free Text: Admission Diagnosis/Problem Admission Diagnosis/Problem Chest pain - Review of Systems HEENT: Reports: No Symptoms Cardiovascular: Reports: No Symptoms. Denies: Chest Pain Gastrointestinal: Reports: No Symptoms. Denies: Abdominal Pain, Nausea, Vomiting Neurological: Reports: No Symptoms Psychiatric: Reports: No Symptoms - Patient Data Vitals - Most Recent: Last Vital Signs Temp 97.2 F 05/26/19 07:50 Pulse 65 05/26/19 07:50 Resp 15 05/26/19 07:50 BP 159/99 H 05/26/19 07:50 Pulse Ox 94 L 05/26/19 07:50 Weight - Most Recent: 95.254 kg I&O - Last 24 hours: Intake & Output 05/25/19 05/26/19 05/26/19 22:59 06:59 14:59 Intake Total 240 150 Output Total 750 Balance -510 150 Lab Results - Last 24 hrs: Laboratory Results - last 24 hr 05/25/19 05/25/19 05/25/19 Range/Units 11:11 11:11 15:53 WBC 6.00 (4.0-11.0) K/uL RBC 5.39 (4.50-5.90) M/uL Hgb 15.1 (13.0-17.0) g/dL Hct 44.9 (38.0-50.0) % MCV 83.3 (80.0-98.0) fL MCH 28.0 (27.0-32.0) pg MCHC 33.6 (31.0-37.0) g/dL RDW Std Deviation 45.6 (28.0-62.0) fl RDW Coeff of Iesha 15 (11.0-15.0) % Plt Count 36 L (150-400) K/uL MPV (7.40-12.00) fL Neut % (Auto) 48.2 (48.0-80.0) % Lymph % (Auto) 38.7 (16.0-40.0) % Nuckolls % (Auto) 10.3 (0.0-15.0) % Eos % (Auto) 2.5 (0.0-7.0) % Baso % (Auto) 0.3 (0.0-1.5) % Neut # (Auto) 2.9 (1.4-5.7) K/uL Lymph # (Auto) 2.3 (0.6-2.4) K/uL Nuckolls # (Auto) 0.6 (0.0-0.8) K/uL Eos # (Auto) 0.2 (0.0-0.7) K/uL Baso # (Auto) 0.0 (0.0-0.1) K/uL Nucleated RBC % 0.0 /100WBC Nucleated RBCs # 0 K/uL Sodium 140 (136-148) mmol/L Potassium 4.5 (3.5-5.1) mmol/L Chloride 105 (98-107) mmol/L Carbon Dioxide 21.2 (21.0-32.0) mmol/L BUN 14 (7.0-18.0) mg/dL Creatinine 0.9 (0.8-1.3) mg/dL Est Cr Clr Drug Dosing 86.71 mL/min Estimated GFR (MDRD) > 60.0 ml/min Glucose 114 H (74-106) mg/dL POC Glucose 97 (60-110) mg/dL Hemoglobin A1c (4.5-6.2) % Calcium 9.0 (8.5-10.1) mg/dL Total Bilirubin 0.5 (0.2-1.0) mg/dL AST 20 (15-37) IU/L ALT 33 (14-63) IU/L Alkaline Phosphatase 61 (46-116) U/L Troponin I < 0.050 (0.000-0.056) ng/mL Total Protein 7.5 (6.4-8.2) g/dL Albumin 3.5 (3.4-5.0) g/dL Globulin 4.0 (2.6-4.0) g/dL Albumin/Globulin Ratio 0.9 (0.9-1.6) Triglycerides (0-200) mg/dL Cholesterol (50-200) mg/dL LDL Cholesterol, Calc (60-180) mg/dL VLDL Cholesterol (5-55) mg/dL HDL Cholesterol (40-60) mg/dL Cholesterol/HDL Ratio (3.3-6.0) 05/25/19 05/25/19 05/25/19 Range/Units 17:24 17:24 20:20 WBC (4.0-11.0) K/uL RBC (4.50-5.90) M/uL Hgb (13.0-17.0) g/dL Hct (38.0-50.0) % MCV (80.0-98.0) fL MCH (27.0-32.0) pg MCHC (31.0-37.0) g/dL RDW Std Deviation (28.0-62.0) fl RDW Coeff of Iesha (11.0-15.0) % Plt Count (150-400) K/uL MPV (7.40-12.00) fL Neut % (Auto) (48.0-80.0) % Lymph % (Auto) (16.0-40.0) % Nuckolls % (Auto) (0.0-15.0) % Eos % (Auto) (0.0-7.0) % Baso % (Auto) (0.0-1.5) % Neut # (Auto) (1.4-5.7) K/uL Lymph # (Auto) (0.6-2.4) K/uL Nuckolls # (Auto) (0.0-0.8) K/uL Eos # (Auto) (0.0-0.7) K/uL Baso # (Auto) (0.0-0.1) K/uL Nucleated RBC % /100WBC Nucleated RBCs # K/uL Sodium (136-148) mmol/L Potassium (3.5-5.1) mmol/L Chloride (98-107) mmol/L Carbon Dioxide (21.0-32.0) mmol/L BUN (7.0-18.0) mg/dL Creatinine (0.8-1.3) mg/dL Est Cr Clr Drug Dosing mL/min Estimated GFR (MDRD) ml/min Glucose (74-106) mg/dL POC Glucose 97 (60-110) mg/dL Hemoglobin A1c 5.9 (4.5-6.2) % Calcium (8.5-10.1) mg/dL Total Bilirubin (0.2-1.0) mg/dL AST (15-37) IU/L ALT (14-63) IU/L Alkaline Phosphatase (46-116) U/L Troponin I < 0.050 (0.000-0.056) ng/mL Total Protein (6.4-8.2) g/dL Albumin (3.4-5.0) g/dL Globulin (2.6-4.0) g/dL Albumin/Globulin Ratio (0.9-1.6) Triglycerides (0-200) mg/dL Cholesterol (50-200) mg/dL LDL Cholesterol, Calc (60-180) mg/dL VLDL Cholesterol (5-55) mg/dL HDL Cholesterol (40-60) mg/dL Cholesterol/HDL Ratio (3.3-6.0) 05/25/19 05/26/19 05/26/19 Range/Units 22:45 06:19 06:23 WBC (4.0-11.0) K/uL RBC (4.50-5.90) M/uL Hgb (13.0-17.0) g/dL Hct (38.0-50.0) % MCV (80.0-98.0) fL MCH (27.0-32.0) pg MCHC (31.0-37.0) g/dL RDW Std Deviation (28.0-62.0) fl RDW Coeff of Iesha (11.0-15.0) % Plt Count (150-400) K/uL MPV (7.40-12.00) fL Neut % (Auto) (48.0-80.0) % Lymph % (Auto) (16.0-40.0) % Nuckolls % (Auto) (0.0-15.0) % Eos % (Auto) (0.0-7.0) % Baso % (Auto) (0.0-1.5) % Neut # (Auto) (1.4-5.7) K/uL Lymph # (Auto) (0.6-2.4) K/uL Nuckolls # (Auto) (0.0-0.8) K/uL Eos # (Auto) (0.0-0.7) K/uL Baso # (Auto) (0.0-0.1) K/uL Nucleated RBC % /100WBC Nucleated RBCs # K/uL Sodium (136-148) mmol/L Potassium (3.5-5.1) mmol/L Chloride (98-107) mmol/L Carbon Dioxide (21.0-32.0) mmol/L BUN (7.0-18.0) mg/dL Creatinine (0.8-1.3) mg/dL Est Cr Clr Drug Dosing mL/min Estimated GFR (MDRD) ml/min Glucose (74-106) mg/dL POC Glucose 93 (60-110) mg/dL Hemoglobin A1c (4.5-6.2) % Calcium (8.5-10.1) mg/dL Total Bilirubin (0.2-1.0) mg/dL AST (15-37) IU/L ALT (14-63) IU/L Alkaline Phosphatase (46-116) U/L Troponin I < 0.050 (0.000-0.056) ng/mL Total Protein (6.4-8.2) g/dL Albumin (3.4-5.0) g/dL Globulin (2.6-4.0) g/dL Albumin/Globulin Ratio (0.9-1.6) Triglycerides 133 (0-200) mg/dL Cholesterol 116 (50-200) mg/dL LDL Cholesterol, Calc 54 L (60-180) mg/dL VLDL Cholesterol 26 (5-55) mg/dL HDL Cholesterol 35 L (40-60) mg/dL Cholesterol/HDL Ratio 3.3 (3.3-6.0) Med Orders - Current: Current Medications Acetaminophen (Tylenol) 650 mg PO Q4H PRN PRN Reason: Pain (mild 1-3) Fish Oil (Fish Oil) 1 gm PO DAILY [facility] Insulin Aspart (Novolog) 0 unit SUBCUT TIDAC [facility]; Protocol Last Admin: 05/26/19 07:28 Dose: Not Given Ondansetron HCl (Zofran) 4 mg IVPUSH Q4H PRN PRN Reason: Nausea Sodium Chloride (Saline Flush) 10 ml FLUSH ASDIRECTED PRN PRN Reason: Keep Vein Open Sodium Chloride (Saline Flush) 2.5 ml FLUSH ASDIRECTED PRN PRN Reason: Keep Vein Open Discontinued Medications Fish Oil (Fish Oil) 1 gm PO ASDIRECTED [facility] Pantoprazole Sodium 40 mg/ (Sodium Chloride) 10 mls @ 300 mls/hr IV NOW ONE Stop: 05/25/19 14:43 Last Admin: 05/25/19 15:07 Dose: 300 mls/hr - Exam Lungs: Reports: Clear to Auscultation, Normal Respiratory Effort Cardiovascular: Reports: Regular Rate, Regular Rhythm GI/Abdominal Exam: Normal Bowel Sounds, Soft Psy/Mental Status: Reports: Alert, Normal Affect, Normal Mood *Q Meaningful Use (DIS) - VTE *Q VTE Pharmacological Contraindications *Q: Thrombocytopenia
== END 2019-05-26 11:50 | disposition home or self-care (01) ==
LOC: MW.ED 10:51 → MW.MS 13:47
PROVIDERS: ADMIT Internal Medicine; ATTEND Internal Medicine
DX: R07.89 Other chest pain (principal); E11.9 Type 2 diabetes mellitus without complications; E66.9 Obesity, unspecified; D69.6 Thrombocytopenia, unspecified; Z82.49 Family history of ischemic heart disease and other diseases of the circulatory system; Z79.84 Long term (current) use of oral hypoglycemic drugs; Z79.899 Other long term (current) drug therapy; Z68.32 Body mass index [BMI] 32.0-32.9, adult
CPT/HCPCS: 36415; 71045; 71045-26; 80053; 80061; 82962; 83036; 84484; 85025; 93005; 96374; 99285-25; A9270-GY; C9113; G0378; J7050

== ENCOUNTER 2021-04-06 11:51 | Emergency (ER) | payer OTHER ==
[2021-04-06] MEDS ORDERED: Octyl 2-Cyanoacrylate 1 Tube TOP ONE (12:15)
[2021-04-06] MEDS ORDERED: Diphtheria,Pertussis(Acell),Tetanus Vaccine 0.5 ML Syringe IM ONE (12:15)
[2021-04-06 12:19] VITALS: BP 149/88; PULSE 91
--- NOTE | 2021-04-06 12:22 | EDM.PDOC ---
ED HPI GENERAL MEDICAL PROBLEM - General Chief Complaint: Laceration Stated Complaint: LACERATION LEFT HAND Time Seen by Provider: 04/06/21 12:04 Source of Information: Reports: Patient History Limitations: Reports: No Limitations - History of Present Illness INITIAL COMMENTS - FREE TEXT/NARRATIVE: HISTORY AND PHYSICAL: History of present illness: Patient is a 55-year-old male who presents to the emergency room with complaints of a small laceration to the base of his left thumb. Denies any other extremity involvement. Offers no systemic complaints. Unsure of his last tetanus update. Review of systems: As per history of present illness and below otherwise all systems reviewed and negative. Past medical history: As per history of present illness and as reviewed below otherwise noncontributory. Surgical history: As per history of present illness and as reviewed below otherwise noncontributory. Social history: See social history for further information Family history: As per history of present illness and as reviewed below otherwise noncontributory. Physical exam: General: Well developed and well nourished. Alert and orientated x 3. Nontoxic in appearance and in no acute distress. Vital signs are stable and have been reviewed by me. Nursing notes were reviewed. HEENT: Atraumatic, normocephalic, pupils equal and reactive bilaterally, negative for conjunctival pallor or scleral icterus, mucous membranes moist, TMs normal bilaterally, throat clear, neck supple, nontender, trachea midline. No drooling or trismus noted. No meningeal signs. No hot potato voice noted. Lungs: Clear to auscultation bilaterally. No wheezes, rales, or rhonchi. Chest nontender. Normal work of breathing, no accessory muscles used. Heart: S1S2, regular rate and rhythm without overt murmur, gallops, or rubs. No JVD. No peripheral edema Abdomen: Soft, nondistended, nontender. Skin: 1 cm C-shaped laceration to the base of his left thumb. No tendon involvement. Remaining skin is intact, warm, dry. No lesions or rashes noted. Hematologic: No petechiae or purpra. Mucosa appropriate color and normal nail bed color and refill. Extremities: See skin for details, moves all extremities per self without difficulty or deficits, negative for cords or calf pain. Neurovascular unremarkable. Neuro: Awake, alert, oriented. Cranial nerves II through XII unremarkable. Cereb ellum unremarkable. Motor and sensory unremarkable throughout. Exam nonfocal. Psychiatric: Mood and affect are appropriate. Normal thought process. Answering questions appropriately. Notes: *This patient was seen and evaluated during the 2019 SARS-CoV-2 novel coronavirus pandemic period. Community viral transmission is ongoing at time of this encounter and the emergency department is operating under pandemic response procedures. Patient's laceration does not require sutures, will be appropriate to Dermabond closed. He states there was no crush injury or need for x-ray of the digit. We will update his tetanus. Wound care instructions provided. Area was thoroughly cleansed with chlorhexidine and wound wash. Dermabond was applied, patient tolerated well. I have talked with the patient about today's findings, in addition to providing specific details for plan of care. Reassessment at the time of disposition demonstrates that the patient is in no acute distress. The patient is stable for discharge, counseling was provided and we discussed in great detail signs and symptoms that would prompt them to return to the Emergency Department. Medication, follow up and supportive care measures were reviewed and discussed. Voices understanding and is agreeable to plan of care. Denies any further questions or concerns at this time. Diagnostics: None Therapeutics: Tdap, Dermabond Prescription: None Impression: Laceration Plan: 1. You were evaluated today on an emergent basis. Your laceration did not require stitches. Please do not peel or pick the Dermabond glue off as this will fall off on its own. Keep the area clean and dry. Continue to monitor for signs of infection. 2. You can alternate Tylenol and ibuprofen as needed for pain and fever management. 3. We encourage you to follow up with your primary care provider and/or recommended specialist in the next few days for re-evaluation and further care/management. 4. If your symptoms should worsen, new symptoms develop or any of the signs and symptoms we discussed should arise please return to the emergency room or call 911 (if needed). Definitive disposition and diagnosis as appropriate pending reevaluation and review of above. - Related Data Allergies Allergy/AdvReac Type Severity Reaction Status Date / Time No Known Allergies Allergy Verified 04/06/21 12:15 Home Meds: Home Meds metFORMIN [Glucophage XR] 500 mg PO TIDMEALS 07/05/18 [History] Fish Oil/[place]-3 Fatty Acids [Fish Oil 1,000 MG] 1 each PO DAILY 05/25/19 [H istory] Aspirin 81 mg PO DAILY #30 tab.chew 05/26/19 [Rx] Past Medical History - Past Health History Medical/Surgical History: Denies Medical/Surgical History HEENT History: Reports: Impaired Vision, Other (See Below) Other HEENT History: wears glasses Respiratory History: Reports: None Gastrointestinal History: Reports: None Genitourinary History: Reports: None Musculoskeletal History: Reports: Back Pain, Chronic Endocrine/Metabolic History: Reports: Diabetes, Type II, Obesity/BMI 30+ Hematologic History: Reports: Idiopathic Thrombocytopenia - Infectious Disease History Infectious Disease History: Reports: Chicken Pox, Measles, Mumps - Past Surgical History Musculoskeletal Surgical History: Reports: Other (See Below) Other Musculoskeletal Surgeries/Procedures:: achilles tendon repair;back sx Social & Family History - Family History Family Medical History: No Pertinent Family History Cardiac: Reports: [place] - Caffeine Use Caffeine Use: Reports: None - Living Situation & Occupation Living situation: Reports: Occupation: Employed ED ROS GENERAL - Review of Systems Review Of Systems: Comprehensive ROS is negative, except as noted in HPI. ED EXAM, SKIN/RASH Exam: See Below (See dictation) ED SKIN PROCEDURES - Laceration/Wound Repair Left thumb Appearance: Superficial, Clean Distal NVT: Neuro & Vascular Intact, No Tendon Injury Skin Prep: Chlorhexidine (Hibiciens), Saline Saline Irrigation (cc's): 500 Exploration/Debridement/Repair: Wound Explored, In a Bloodless Field, Explored to Base, No Foreign Material Found Closed with: Dermabond Lac/Wound length In cm: 1 Drain Placement: No Sterile Dressing Applied: None Tetanus Status Addressed: Yes Complications: No Course - Vital Signs Last Recorded V/S: Last Vital Signs Temp 98 F 04/06/21 12:16 Pulse 91 04/06/21 12:16 Resp 18 04/06/21 12:16 BP 149/88 H 04/06/21 12:16 Pulse Ox 96 04/06/21 12:16 - Orders/Labs/Meds Orders: Active Orders 24 hr Category Date Time Status Vaccines to be Administered [RC] PER UNIT ROUTINE Care 04/06/21 12:15 Ordered Meds: Medications Discontinued Medications Generic Name Dose Route Start Last Admin Trade Name Freq PRN Reason Stop Dose Admin Diphtheria/Tetanus/Acell Pertussis 0.5 ml 08/14/21 12:15 Diphtheria,Pertussis(Acell),Tetanus Vaccine 0.5 Ml Syringe IM 04/06/21 12:16 .ONCE ONE Octyl Cyanoacrylate 1 applic 04/06/21 12:15 Octyl 2-Cyanoacrylate 1 Tube TOP 04/06/21 12:16 ONETIME ONE Departure - Departure Time of Disposition: 12:30 Disposition: Home, Self-Care 01 Clinical Impression: Laceration - Discharge Information Instructions: Laceration Care, Adult, [id number] Referrals: PCP,None [Primary Care Provider] - Forms: ED Department Discharge Additional Instructions: The following information is given to patients seen in the emergency department who are being discharged to home. This information is to outline your options for follow-up care. We provide all patients seen in our emergency department with a follow-up referral. The need for follow-up, as well as the timing and circumstances, are variable depending upon the specifics of your emergency department visit. If you don't have a primary care physician on staff, we will provide you with a referral. We always advise you to contact your personal physician following an emergency department visit to inform them of the circumstance of the visit and for follow-up with them and/or the need for any referrals to a consulting specialist. The emergency department will also refer you to a specialist when appropriate. This referral assures that you have the opportunity for follow-up care with a specialist. All of these measure are taken in an effort to provide you with optimal care, which includes your follow-up. Under all circumstances we always encourage you to contact your private physician who remains a resource for coordinating your care. When calling for follow-up care, please make the office aware that this follow-up is from your recent emergency room visit. If for any reason you are refused follow-up, please contact the [facility] Emergency Department at and asked to speak to the emergency department charge nurse. [facility] [address] [place] [id number] [id number] Thank you for choosing the [facility] emergency department in [place] for your medical needs today. It was a pleasure caring for you. Today you were seen in the emergency department for laceration care. 1. You were evaluated today on an emergent basis. Your laceration did not require stitches. Please do not peel or pick the Dermabond glue off as this will fall off on its own. Keep the area clean and dry. Continue to monitor for signs of infection. 2. You can alternate Tylenol and ibuprofen as needed for pain and fever management. 3. We encourage you to follow up with your primary care provider and/or recommended specialist in the next few days for re-evaluation and further care/management. 4. If your symptoms should worsen, new symptoms develop or any of the signs and symptoms we discussed should arise please return to the emergency room or call 911 (if needed). Sepsis Event Note (ED) - Focused Exam Vital Signs: Vital Signs Temp Pulse Resp BP Pulse Ox 04/06/21 12:16 98 F 91 18 149/88 H 96 - My Orders Last 24 Hours: My Active Orders 04/06/21 12:15 Vaccines to be Administered [RC] PER UNIT ROUTINE - Assessment/Plan Last 24 Hours: My Active Orders 04/06/21 12:15 Vaccines to be Administered [RC] PER UNIT ROUTINE
== END 2021-04-06 12:34 | disposition home or self-care (01) ==
LOC: MW.ED 11:51
DX: S61.012A Laceration without foreign body of left thumb without damage to nail, initial encounter (principal); E11.9 Type 2 diabetes mellitus without complications; E66.9 Obesity, unspecified; Z68.37 Body mass index [BMI] 37.0-37.9, adult; Z79.82 Long term (current) use of aspirin; Z79.84 Long term (current) use of oral hypoglycemic drugs; Z23 Encounter for immunization; W45.0XXA Nail entering through skin, initial encounter
CPT/HCPCS: 12001; 90471; 90715; 99282; A9270

== ENCOUNTER 2021-06-25 07:34 | Emergency (ER) | payer OTHER ==
--- NOTE | 2021-06-25 07:40 | EDM.PDOC ---
ED HPI GENERAL MEDICAL PROBLEM - General Stated Complaint: CHEST PAIN Time Seen by Provider: 06/25/21 07:36 - History of Present Illness INITIAL COMMENTS - FREE TEXT/NARRATIVE: 56-year-old male with history of diabetes presenting with chest pain associated with left arm paresthesias. Symptoms have been going on for approximately 1 week they have been gradually increasing in frequency. There is a sharp left lateral chest pain associated with left arm tingling his symptoms come on and last for approximately 30 seconds and then fade away. At the moment they are happening 3 or 4 times a day. There is no clear trigger no exacerbating or alleviating factors. Chest pain is sharp focused in the left lateral chest and does not radiate. There is no associated lightheadedness or dizziness no shortness of breath. Patient denies fevers or chills he denies back pain denies nausea vomiting or abdominal pain. Patient had a similar presentation in 2019 at that time he was admitted and had 3 troponin rule out he was slated for a nuc med stress test study but had to cancel it because of work. He actually has an appointment with his primary care doctor at the [facility] the day after tomorrow to arrange for a cardiac test. - Related Data Allergies Allergy/AdvReac Type Severity Reaction Status Date / Time No Known Allergies Allergy Verified 06/25/21 07:51 Home Meds: Home Meds metFORMIN [Glucophage XR] 500 mg PO TIDMEALS 07/05/18 [History] Fish Oil/Mooers-3 Fatty Acids [Fish Oil 1,000 MG] 1 each PO DAILY 05/25/19 [History] Aspirin 81 mg PO DAILY #30 tab.chew 05/26/19 [Rx] Past Medical History - Past Health History Medical/Surgical History: Denies Medical/Surgical History HEENT History: Reports: Impaired Vision, Other (See Below) Other HEENT History: wears glasses Respiratory History: Reports: None Gastrointestinal History: Reports: None Genitourinary History: Reports: None Musculoskeletal History: Reports: Back Pain, Chronic Endocrine/Metabolic History: Reports: Diabetes, Type II, Obesity/BMI 30+ Hematologic History: Reports: Idiopathic Thrombocytopenia - Infectious Disease History Infectious Disease History: Reports: Chicken Pox, Measles, Mumps - Past Surgical History Musculoskeletal Surgical History: Reports: Other (See Below) Other Musculoskeletal Surgeries/Procedures:: achilles tendon repair;back sx Social & Family History - Family History Family Medical History: No Pertinent Family History Cardiac: Reports: IN - Caffeine Use Caffeine Use: Reports: None - Living Situation & Occupation Living situation: Reports: Occupation: Employed ED ROS GENERAL - Review of Systems Review Of Systems: See Below Free Text/Narrative/Comment: General: No fever. Skin: No rash. Eyes: No vision problems. ENT: No sore throat. Neck: No neck stiffness. Respiratory: No shortness of breath. Cardiac: Per HPI Gastrointestinal: No nausea, vomiting or abdominal pain. Urinary: No dysuria. Musculoskeletal: No myalgias/arthralgias. Neurologic: No headache. ED EXAM, GENERAL - Physical Exam Exam: See Below Free Text/Narrative:: General Appearance: No acute distress, appears comfortable Skin: No rash HEENT: Normocephalic/atraumatic, sclera anicteric, mucous membranes moist Neck: Normal range of motion Chest and Lungs: Bilateral breath sounds, clear to auscultation Cardiovascular: Regular rate and rhythm Chest wall: Focal tenderness in the left lateral chest proximately rib 5 and 6 no crepitus Abdomen: Soft, non-tender Back: Normal Musculoskeletal: No edema or tenderness Neurologic: Awake, alert, no obvious deficits, moving all extremities Psychiatric: Appropriate, cooperative #1 Interpretation EKG Date: 06/25/21 Time: 07:45 EKG Interpretation Comments: Normal sinus rhythm ventricular rate of 66 normal axis and intervals no acute ischemia normal EKG Course - Vital Signs Last Recorded V/S: Last Vital Signs Temp 97.6 F 06/25/21 07:47 Pulse 65 06/25/21 07:47 Resp 16 06/25/21 07:47 BP 149/92 H 06/25/21 07:47 Pulse Ox 96 06/25/21 07:47 - Orders/Labs/Meds Orders: Active Orders 24 hr Category Date Time Status Saline Lock Insert [OM.PC] Stat Oth 06/25/21 07:49 Ordered Labs: Laboratory Tests 06/25/21 06/25/21 Range/Units 07:43 07:43 WBC 5.49 (4.0-11.0) K/uL RBC 5.48 (4.50-5.90) M/uL Hgb 15.6 (13.0-17.0) g/dL Hct 45.9 (38.0-50.0) % MCV 83.8 (80.0-98.0) fL MCH 28.5 (27.0-32.0) pg MCHC 34.0 (31.0-37.0) g/dL RDW Std Deviation 45.0 (28.0-62.0) fl RDW Coeff of Iesha 15 (11.0-15.0) % Plt Count 197 (150-400) K/uL MPV 10.50 (7.40-12.00) fL Neut % (Auto) 42.2 L (48.0-80.0) % Lymph % (Auto) 46.8 H (16.0-40.0) % Wells % (Auto) 8.4 (0.0-15.0) % Eos % (Auto) 2.2 (0.0-7.0) % Baso % (Auto) 0.4 (0.0-1.5) % Neut # (Auto) 2.3 (1.4-5.7) K/uL Lymph # (Auto) 2.6 H (0.6-2.4) K/uL Wells # (Auto) 0.5 (0.0-0.8) K/uL Eos # (Auto) 0.1 (0.0-0.7) K/uL Baso # (Auto) 0.0 (0.0-0.1) K/uL Nucleated RBC % 0.0 /100WBC Nucleated RBCs # 0 K/uL Sodium 139 (136-148) mmol/L Potassium 4.3 (3.5-5.1) mmol/L Chloride 103 (98-107) mmol/L Carbon Dioxide 24.5 (21.0-32.0) mmol/L BUN 15 (7.0-18.0) mg/dL Creatinine 1.1 (0.8-1.3) mg/dL Est Cr Clr Drug Dosing 69.27 mL/min Estimated GFR (MDRD) > 60.0 ml/min Glucose 128 H (74-106) mg/dL Calcium 8.6 (8.5-10.1) mg/dL Total Bilirubin 0.5 (0.2-1.0) mg/dL AST 18 (15-37) IU/L ALT 25 (14-63) IU/L Alkaline Phosphatase 55 (46-116) U/L Troponin I < 0.050 (0.000-0.056) ng/mL Total Protein 7.6 (6.4-8.2) g/dL Albumin 3.5 (3.4-5.0) g/dL Globulin 4.1 H (2.6-4.0) g/dL Albumin/Globulin Ratio 0.9 (0.9-1.6) Lipase 91 (73-393) U/L Meds: Medications Discontinued Medications Generic Name Dose Route Start Last Admin Trade Name Freq PRN Reason Stop Dose Admin Sodium Chloride 10 ml 06/25/21 07:49 06/25/21 07:58 Sodium Chloride 0.9% 10 Ml Syringe FLUSH 10 ml ASDIRECTED PRN Administration Keep Vein Open Sodium Chloride 2.5 ml 06/25/21 07:49 06/25/21 07:58 Sodium Chloride 0.9% 2.5 Ml Syringe FLUSH 2.5 ml ASDIRECTED PRN Administration Keep Vein Open Departure - Departure Time of Disposition: 08:58 Disposition: Home, Self-Care 01 Condition: Good Clinical Impression: Chest pain Qualifiers: Chest pain type: unspecified Qualified Code(s): R07.9 - Chest pain, unspecified - Discharge Information *PRESCRIPTION DRUG MONITORING PROGRAM REVIEWED*: Not Applicable *COPY OF PRESCRIPTION DRUG MONITORING REPORT IN PATIENT DALY: Not Applicable Instructions: Nonspecific Chest Pain, Adult Forms: ED Department Discharge Additional Instructions: Your EKG today showed no sign of heart arrhythmia and no sign of heart attack. Your chest x-ray and initial round of blood work was normal. As we discussed the standard recommendations are to stay for a second heart enzyme that is drawn 2 hours after the first round of blood work to ensure there is small heart attack has not occurred. You have opted not to stay for the second troponin which is certainly within your rights. Please be sure to follow-up with your primary care doctor the day after tomorrow as scheduled. If your pain returns and does not fade away rapidly if you develop severe shortness of breath or any other symptoms that concern you please return to the ER right away. The following information is given to patients seen in the emergency department who are being discharged to home. This information is to outline your options for follow-up care. We provide all patients seen in our emergency department with a follow-up referral. The need for follow-up, as well as the timing and circumstances, are variable depending upon the specifics of your emergency department visit. If you don't have a primary care physician on staff, we will provide you with a referral. We always advise you to contact your personal physician following an emergency department visit to inform them of the circumstance of the visit and for follow-up with them and/or the need for any referrals to a consulting specialist. The emergency department will also refer you to a specialist when appropriate. This referral assures that you have the opportunity for follow-up care with a specialist. All of these measure are taken in an effort to provide you with optimal care, which includes your follow-up. Under all circumstances we always encourage you to contact your private physician who remains a resource for coordinating your care. When calling for follow-up care, please make the office aware that this follow-up is from your recent emergency room visit. If for any reason you are refused follow-up, please contact the [facility] Emergency Department at and asked to speak to the emergency department charge nurse. Sepsis Event Note (ED) - Focused Exam Vital Signs: Vital Signs Temp Pulse Resp BP Pulse Ox 06/25/21 07:47 97.6 F 65 16 149/92 H 96 - My Orders Last 24 Hours: My Active Orders 06/25/21 07:49 Saline Lock Insert [OM.PC] Stat - Assessment/Plan Last 24 Hours: My Active Orders 06/25/21 07:49 Saline Lock Insert [OM.PC] Stat Assessment:: 56-year-old male presenting with left-sided chest pain associated with left arm paresthesias that would be highly atypical for ACS. That said given his risk factors troponin and chest x-ray ordered. Could consider delta troponin as well. Patient is without pleuritic chest pain there is no tachycardia there is no hypoxia and the pain is intermittent all of these argue against PE. Nothing about this presentation suggest aortic dissection. Patient's lungs are clear on exam pneumothorax felt unlikely but x-ray pending. Costochondritis would explain the focal tenderness on the chest wall but the intermittent nature of the pain as well as the left arm paresthesias would be atypical for this etiology. No cough or fever that would suggest pneumonia but this which on the chest x-ray. There is no GI symptoms or abdominal symptoms that would suggest pancreatitis or biliary pathology labs ordered. There is no neck pain no findings in the neck that would suggest a cervical radiculopathy. Patient strength is intact in the left arm. Labs and chest x-ray are normal. Had an extensive conversation with the patient and recommended to stay for a 2-hour delta troponin patient strongly against this and would prefer to simply go home at this time and follow-up with PCP. We discussed that the standard of care is a 2-hour troponin and he expresses understanding and would still like to leave and follow-up. Patient has a calmness to make this medical decision.
[2021-06-25] MEDS ORDERED: Sodium Chloride 0.9% 2.5 ML Syringe FLUSH PRN (07:49)
[2021-06-25] MEDS ORDERED: Sodium Chloride 0.9% 10 ML Syringe FLUSH PRN (07:49)
[2021-06-25 07:50] VITALS: BP 149/92; PULSE 65
[2021-06-25 08:26] LABS: BLOOD UREA NITROGEN,BUN 15 mg/dL (7.0-18.0); CARBON DIOXIDE,CO2 24.5 mmol/L (21.0-32.0); CHLORIDE,CL 103 mmol/L (98-107); GLUCOSE RANDOM 128 mg/dL (74-106); LIPASE 91 U/L (73-393); POTASSIUM,K 4.3 mmol/L (3.5-5.1); SODIUM,NA 139 mmol/L (136-148)
--- NOTE | 2021-06-25 08:42 | CR ---
INDICATION: Chest pain. COMPARISON: Portable AP chest May 25, 2018. TECHNIQUE: Portable AP chest. FINDINGS: Normal size cardiac silhouette. Clear lung cisneros with no evidence of acute pneumonic infiltrates or CHF. No pneumothorax or pleural effusion. IMPRESSION: Negative portable AP chest. Dictated by Denisa Salvador MD @ 06/25/2021 8:40:22 AM (Electronically Signed)
== END 2021-06-25 09:08 | disposition home or self-care (01) ==
LOC: MW.ED 07:34
DX: R07.9 Chest pain, unspecified (principal); E11.9 Type 2 diabetes mellitus without complications; E66.9 Obesity, unspecified; Z68.35 Body mass index [BMI] 35.0-35.9, adult; Z79.82 Long term (current) use of aspirin; Z79.84 Long term (current) use of oral hypoglycemic drugs
CPT/HCPCS: 71045; 71045-26; 80053; 83690; 84484; 85025; 93005; 99285-25